=== PATIENT | male | born 1970 | race Caucasian/White ===

== ENCOUNTER 2017-01-13 15:00 | Emergency (ER) | payer OTHER ==
[~2017-01-13] VITALS: Ht 180.3 cm; Wt 82.0 kg
[2017-01-13] MEDS ORDERED: PERTUSS(ACELL),DIPH,TET VAC/PF 0.5 ML VIAL IM ONE (15:30)
[2017-01-13] MEDS ORDERED: LIDOCAINE HCL BUFFERED 1% 20 ML VIAL INJ ONE (15:45)
[2017-01-13] MEDS ORDERED: HYDROCODONE/ACETAMINOPHEN 5-325 MG TABLET PO ONE (17:30)
[2017-01-13 18:14] VITALS: BP 127/81
== END 2017-01-13 18:27 | disposition home or self-care (01) ==
LOC: EMS 15:02 → EEVIPCON 15:02 → EMS 18:27
DX: S09.90XA Unspecified injury of head, initial encounter (principal); S01.01XA Laceration without foreign body of scalp, initial encounter; S01.21XA Laceration without foreign body of nose, initial encounter; Y08.89XA Assault by other specified means, initial encounter; Y93.89 Activity, other specified; Y92.89 Other specified places as the place of occurrence of the external cause; Y99.8 Other external cause status
CPT/HCPCS: 12005; 12011; 70450; 70486; 90471; 90715; 96372; 99284; J0690; J3490

== ENCOUNTER 2017-01-24 13:42 | Emergency (ER) | payer OTHER ==
[~2017-01-24] VITALS: Ht 180.3 cm; Wt 72.7 kg
[2017-01-24 14:05] VITALS: BP 121/97
== END 2017-01-24 18:44 | disposition left against medical advice (07) ==
LOC: EMS 13:42
DX: Z48.02 Encounter for removal of sutures (principal); I48.91 Unspecified atrial fibrillation; I10 Essential (primary) hypertension; F17.210 Nicotine dependence, cigarettes, uncomplicated
CPT/HCPCS: 99281